=== PATIENT | male | born 1990 | race Caucasian/White ===

== ENCOUNTER 2021-02-14 10:23 | Emergency (ER) | payer MEDICAID ==
[2021-02-14] MEDS: LORazepam 2 MG/ML Syringe IM ONE ×2 (10:53→13:14)
[2021-02-14 11:15] LABS: CHLORIDE,CL 101 mEq/L (98-106); SODIUM,NA 138 mEq/L (136-145)
--- NOTE | 2021-02-14 11:15 | EDM.PDOC ---
<Jake Farias - Last Filed: 02/14/21 12:20> ED HPI GENERAL MEDICAL PROBLEM - General Chief Complaint: General Stated Complaint: overdose Time Seen by Provider: 02/14/21 10:23 Source of Information: Reports: Patient, Police - History of Present Illness INITIAL COMMENTS - FREE TEXT/NARRATIVE: Glenn is a 30-year-old male patient presents to the emergency department with police department. Patient reportedly overdosed on prescription medications in which he states was hydroxyzine, Zyprexa, and Lamictal. Patient is not quite sure when he took these medications but believes it was last night. Patient states that he feels that his mind is foggy, feels agitated, and was trying to take medication so he will not wake up. He stated that a friend of his actually called the police due to their concerns. Patient admits to using methamphetamine recently. Reports that he has a mental health history. He is also states that he may have been drinking alcohol yesterday but does not remember much from the events for the last day. Patient denies nausea or vomiting. He does report to see a psychiatrist or psychologist and states he has had mental health treatment at [facility]. Reports that he just cannot focus at the present time. Onset Date: 02/13/21 Duration: Other (unknown time of ingestion believed to be last night) Severity: Mild Improves with: Reports: None Worsens with: Reports: None, Breathing Associated Symptoms: Reports: Other (see free text) - Related Data Allergies Allergy/AdvReac Type Severity Reaction Status Date / Time amoxicillin Allergy Hives Verified 02/14/21 10:46 Penicillins Allergy Hives Verified 02/14/21 10:46 Sulfa (Sulfonamide Allergy Hives Verified 02/14/21 10:46 Antibiotics) Home Meds: Home Meds . [Unable to Verify Home Med List] 02/14/21 [History] Past Medical History Gastrointestinal History: Reports: Pancreatitis Psychiatric History: Reports: Addiction, Anxiety - Past Surgical History GI Surgical History: Reports: Colonoscopy, EGD Social & Family History - Caffeine Use Caffeine Use: Reports: Coffee ED ROS GENERAL - Review of Systems Review Of Systems: See Below Constitutional: Reports: Fatigue, Other (difficulty focusing). Denies: Fever, Chills HEENT: Reports: No Symptoms Respiratory: Denies: Shortness of Breath, Wheezing, Pleuritic Chest Pain, Cough Cardiovascular: Denies: Chest Pain, Blood Pressure Problem, Dyspnea on Exertion, Palpitations Endocrine: Reports: No Symptoms GI/Abdominal: Denies: Abdominal Pain, Nausea, Vomiting : Reports: No Symptoms Skin: Reports: No Symptoms Neurological: Reports: Tremors Psychiatric: Reports: Agitation, Anxiety, Suicidal Ideation Hematologic/Lymphatic: Reports: No Symptoms Immunologic: Reports: No Symptoms ED EXAM, GENERAL - Physical Exam Exam: See Below Exam Limited By: No Limitations General Appearance: Alert, Anxious, Moderate Distress Eye Exam: Bilateral Eye: Nystagmus Ears: Hearing Grossly Normal Nose: Normal Inspection, No Blood Throat/Mouth: Normal Voice, No Airway Compromise Head: Atraumatic, Normocephalic Neck: Normal Inspection Respiratory/Chest: No Respiratory Distress, Lungs Clear, Normal Breath Sounds, No Accessory Muscle Use. No: Respiratory Distress, Crackles, Rales, Rhonchi, Wheezing Cardiovascular: No Edema, No Gallop, No Murmur, Tachycardia GI/Abdominal: Normal Bowel Sounds, Soft, Non-Tender, No Organomegaly, No Distention, No Mass (Male) Exam: Deferred Rectal (Males) Exam: Deferred Extremities: Normal Inspection, Normal Range of Motion Neurological: Alert, Oriented Psychiatric: Anxious, Other (suicidal ideation) Skin Exam: Warm, Dry, Intact, Pallor #1 Interpretation EKG Date: 02/14/21 Time: 10:58 Rhythm: NSR [place]: Normal P-Wave: Present QRS: Normal ST-T: Normal QT: Prolonged Course - Re-Assessments/Exams Free Text/Narrative Re-Assessment/Exam: Glenn is a 30-year-old male patient that presented to the ED with ingestion of prescription medications including Zyprexa, Lamictal, hydroxyzine and possibly others. Patient also admits to methamphetamine use. Patient was found to be tachycardic at a rate in the 100s to 110s on arrival. Patient with anxiety. Poison control was called and they suggested Tylenol and salicylate levels along with CBC, metabolic panel, urine drug screen, ROLA, and EKG. Labs and EKG obtained. EKG shows a sinus tachycardia with prolonged QT changes. We are unable to do acetaminophen and salicylate levels as they are send out exams. When speaking with poison control they they have stated that if abnormalities liver enzyme studies were elevated that the Tylenol and salicylate levels would need to be performed more acutely. AST elevated at 160 and ALT critically elevated at 334. Blood alcohol is negative and patient did not produce a urine told to complete a urine drug screen. The patient was given 1 mg Ativan IM for his agitation and the anticholinergic effects related to the medications taken. Due to these findings I called [facility] and spoke to the emergency department physician Dr. Abel. Dr. Anna has accepted transfer for continued care and will complete salicylate and Tylenol levels and further evaluation and potential placement for mental health concerns and suicide attempt. Departure - Departure Time of Disposition: 12:20 Disposition: DC/Tfer to [facility] Condition: Fair Clinical Impression: Suicidal behavior with attempted self-injury, Elevated liver enzymes Drug overdose, intentional Qualifiers: Encounter type: initial encounter Qualified Code(s): T50.902A - Poisoning by unspecified drugs, medicaments and biological substances, intentional self-harm, initial encounter - Discharge Information *PRESCRIPTION DRUG MONITORING PROGRAM REVIEWED*: Not Applicable *COPY OF PRESCRIPTION DRUG MONITORING REPORT IN PATIENT CAR: Not Applicable Referrals: PCP,Not In Area [Primary Care Provider] - Forms: ED Department Discharge Additional Instructions: 1. Transfer to [facility] to Dr. Abel for further evaluation and treatment per BLS ambulance. <Olga Owens - Last Filed: 02/15/21 13:05> Course - Vital Signs Last Recorded V/S: Last Vital Signs Temp 97 F 02/14/21 10:57 Pulse 108 H 02/14/21 10:57 Resp 18 02/14/21 10:57 BP 108/63 02/14/21 10:57 Pulse Ox - Orders/Labs/Meds Labs: Laboratory Tests 02/14/21 02/14/21 02/14/21 Range/Units 10:32 10:50 10:50 WBC 8.3 (4.0-11.0) 10^3/uL RBC 4.57 (4.50-6.00) x10^6/uL Hgb 14.7 (14.0-18.0) g/dL Hct 42.9 (42.0-52.0) % MCV 93.9 (83.0-97.0) fL MCH 32.2 H (27.0-32.0) pg MCHC 34.3 (32.0-36.0) g/dL RDW Coeff of Osmani 14.2 (11.0-15.0) % Plt Count 279 (150-400) 10^3/uL Immature Gran % (Auto) 0.2 (0.0-4.9) % Neut % (Auto) 76.4 H (41-71) % Lymph % (Auto) 11.4 L (24-44) % [place] % (Auto) 9.2 (0-10) % Eos % (Auto) 2.3 (0-6) % Baso % (Auto) 0.5 (0-1) % Neut # (Auto) 6.36 (1.80-8.00) x10^3/uL Lymph # (Auto) 0.95 (0.60-5.00) 10^3/uL [place] # (Auto) 0.77 (0.00-1.50) 10^3/uL Eos # (Auto) 0.19 (0.00-1.50) 10^3/uL Baso # (Auto) 0.04 (0.00-0.50) 10^3/uL Immature Gran # (Auto) 0.02 (0.00-0.49) 10^3/uL PT 11.6 (9.7-12.3) SEC INR 1.06 (0.92-1.18) Sodium 138 (136-145) mEq/L Potassium 3.4 L (3.5-5.0) mEq/L Chloride 101 (98-106) mEq/L Carbon Dioxide 26 (21-32) mmol/L BUN 10 (7-18) mg/dL Creatinine 1.1 (0.7-1.3) mg/dL Est Cr Clr Drug Dosing TNP Estimated GFR (MDRD) > 60 (>=60) mL/min Glucose 87 (75-99) mg/dL Calcium 8.8 (8.4-10.1) mg/dL Total Bilirubin 2.5 H (0.0-1.0) mg/dL AST 160 H (15-37) U/L ALT 334 H* (12-78) U/L Alkaline Phosphatase 112 (46-116) U/L Total Protein 7.3 (6.4-8.2) g/dL Albumin 3.8 (3.4-5.0) g/dL Ethyl Alcohol < 3 (0-3) mg/dL Meds: Medications Discontinued Medications Generic Name Dose Route Start Last Admin Trade Name Freq PRN Reason Stop Dose Admin Lorazepam 1 mg 02/14/21 10:38 02/14/21 10:53 Lorazepam 2 Mg/Ml Syringe IM 02/14/21 10:39 1 mg ONETIME ONE Administration Lorazepam 1 mg 02/14/21 11:57 02/14/21 13:14 Lorazepam 2 Mg/Ml Syringe IM 02/14/21 11:58 Not Given ONETIME ONE - Assessment/Plan Plan: I have personally examined patient and reviewed plan of care and agree with cares.
== END 2021-02-14 12:45 | disposition critical access hospital (66) ==
LOC: CC.ED 10:23
DX: T43.592A Poisoning by other antipsychotics and neuroleptics, intentional self-harm, initial encounter (principal); T42.6X2A Poisoning by other antiepileptic and sedative-hypnotic drugs, intentional self-harm, initial encounter; R74.8 Abnormal levels of other serum enzymes; Z88.0 Allergy status to penicillin; Z88.2 Allergy status to sulfonamides
CPT/HCPCS: 36415; 80053; 80307; 85025; 85610; 93005; 96372; 99284-25; J2060